=== PATIENT | female | born 1995 | race Caucasian/White ===

== ENCOUNTER 2020-02-02 20:02 | Emergency (ER) | payer OTHER ==
--- OUTSIDE RECORDS SUMMARY | 2020-02-02 20:12 | XMS ---
:1995 Author Organization [facility] Care Team Providers Name Role Phone STAFF, NOT ON Unavailable Unavailable Re-disclosure Warning The records that you are about to access may contain information from federally- assisted alcohol or drug abuse programs. If such information is present, then the following federally mandated warning applies: This information has been disclosed to you from records protected by federal confidentiality rules (42 CFR part 2). The federal rules prohibit you from making any further disclosure of this information unless further disclosure is expressly permitted by the written consent of the person to whom it pertains or as otherwise permitted by 42 CFR part 2. A general authorization for the release of medical or other information is NOT sufficient for this purpose. The Federal rules restrict any use of the information to criminally investigate or prosecute any alcohol or drug abuse patient.The records that you are about to access may contain highly sensitive health information, the redisclosure of which is protected by Article 27-F of the [place] [employer] law. If you continue you may haveaccess to information: Regarding HIV / AIDS; Provided by facilities licensed or operated by the [place] Office of Mental Health; or Provided by the [place] Office for People With Developmental Disabilities. If such information is present, then the following [place] mandated warning applies: This information has been disclosed to you from confidential records which are protected by state law. State law prohibits you from making any further disclosure of this information without the specific written consent of the person to whom it pertains, or as otherwise permitted by law. Any unauthorized further disclosure in violation of state law may result in a fine or prison sentence or both. A general authorization for the release of medical or other information is NOT sufficient authorization for further disclosure. Encounters Encounter Providers Location Date Indications Data Source(s ) Outpatient Attender: DOCTOR 01/14/[address] [facility] STAFF 09:38:00 AM Hospital EDT F50.02 Outpatient Attender: DOCTOR STAFF 09/24/2019 09:16:[address] [facility] F50.02 Outpatient Attender: DOCTOR STAFF 09/04/2019 08:43:00 AM F 50.2 [facility] EDT F50.2 Insurance Providers Payer name Policy type / Policy ID Covered Covered republican's Policy Plan Coverage type republican ID relationship to [employer] Information [employer] HMO [id number] SP [id number] AETNA POS [id number] [place] [id number] AETNA POS [id number] [place] [id number] 3 [employer]ETNA HMO [id number] [place] [id number] 3 [employer] HMO [id number] SP [id number] 3 Problems, Conditions, and Diagnoses Code Display Name Description Problem Type Effective Dates Data Source(s) F50.02 Anorexia nervosa, F50.02 Diagnosis 01/14/2020 [facility] 09:38:00 AM EDT Hospital eating/purging type F50.2 Bulimia nervosa F50.2 Diagnosis 09/04/2019 [facility] 08:43:00 AM EDT Hospital Results ID Date Data Source [id number] 08/31/2019 12:00:[address] [facility] Name Value Range Interpretation Description Data Sup porting Code Source(s) Document(s ) SARS CoV-2 [facility] Interpretation This lab was ordered by [facility] and reported by [employer]. Procedure
[2020-02-02 20:14] VITALS: BP 105/68; PULSE 68; TEMP 99.4; BMI 25.8
--- NOTE | 2020-02-02 20:33 | PDOC ---
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 Patient was upset and started hitting her head on a tree it was self-inflicted. Patient did not pass out. Patient did not hit her so hard enough to get any contusions or obvious injuries. Patient denies any headache, blurry vision or any neurological complaints. Patient was sent in by the eating disorder clinic for evaluation. Allergies: as per nursing notes Past Medical History as per HPI eating disorder and poor self-control Social history: Lives with family. No smoking. No alcohol. No illicit drugs. Surgical history: None General: No fevers or chills, no weakness, no weight loss HEENT: No change in vision. No sore throat,. No ear pain CardioVascular: no chest discomfort. No shortness of breath Respiratory:No cough, or wheezing. Gastrointestinal: no nausea, vomiting, diarrhea or constipation, No rectal bleeding Genitourinary: No dysuria, hematuria, or frequency Musculoskeletal: No joint or muscle pain or swelling Neurologic: No headache, vertigo, dizziness or loss of consciousness Psychiatric: nor depression Skin: No rashes or easy bruising Endocrine: no increased thirst or abnormal weight change Allergic: no skin or latex allergy All other systems reviewed and normal GENERAL: The patient is awake, alert, and fully oriented, in no acute distress. HEENT:Head is normal with no signs of trauma. Eyes: Pupils equal, round and reactive to light, Ears, and Throat are normal. Neck is supple. No Lympha denopathy. EXTREMITIES:atraumatic, Normal range of motion, no edema. NEUROLOGICAL: Normal speech, normal gait. PSYCH: Normal mood, normal affect. SKIN: Warm, Dry, normal turgor, no rashes or lesions noted. Assessment and plan: This is a 24-year-old female with a eating disorder who hit her head on a tree that was self-inflicted. Patient sent in for evaluation. Patient has a normal exam and no complaints. Patient discharged back to her clinic Past History - Medical History Allergies/Adverse Reactions: Allergies Allergy/AdvReac Type Severity Reaction Status Date / Time No Known Allergies Allergy Unverified 02/02/20 20:17 Home Medications: Ambulatory Orders Aripiprazole [Abilify -] 2 mg PO DAILY 02/02/20 Escitalopram Oxalate [Lexapro -] 20 mg PO DAILY 02/02/20 Lamotrigine [Lamictal] 200 mg PO 02/02/20 Pinon Carbonate [Eskalith -] 450 mg PO DAILY 02/02/20 Naltrexone HCl 1 tab PO HS 02/02/20 COPD: No Psychiatric Problems: Yes (ANXIETY DEPRESSION) Other medical history: BULIMIA - Reproductive History Is Patient Now?: No - Psycho-Social/Smoking History Smoking History: Current every day smoker Number of Cigarettes Smoked Daily: 3 Information on smoking cessation initiated: Yes - Substance Abuse Hx (Audit-C & DAST Scrn) How often the patient has a drink containing alcohol: 2-4 times / month Number of drinks the patient has on a typical day: 5 or 6 Score: In Men: 4 or > Positive; In Women: 3 or > Positive: 4 Screen Result (Pos requires Nsg. Audit-10AR): Positive In the last yr the pt used illegal drug/Rx for NonMed reason: Yes Score: Yes response is considered Positive: 1 Screen Result (Positive result requires Nsg. DAST-10): Positive *Physical Exam - Vital Signs Last Vital Signs Temp Pulse Resp BP Pulse Ox 99.4 F 68 16 105/68 98 02/02/20 20:06 02/02/20 20:06 02/02/20 20:06 02/02/20 20:06 02/02/20 20:06 Discharge - Discharge Information Problems reviewed: Yes Clinical Impression/Diagnosis: Concern of healthcare provider about possible non-accidental traumatic injury Condition: Stable Disposition: HOME - Admission No - Follow up/Referral - Patient Discharge Instructions Additional Instructions: Return to the emergency department immediately with ANY new, persistent or worsening symptoms. Continue any medications as previously prescribed by your physician. You should follow up with your primary doctor as soon as possible regarding today's emergency department visit. . Please make sure your doctor reviews the results of your emergency evaluation. Thank you for coming to the Emergency Department today for your care. It was a pleasure to see you today. Please note that your evaluation is INCOMPLETE until you follow-up with your doctor. - Post Discharge Activity
== END 2020-02-02 20:44 | disposition home or self-care (01) ==
LOC: FER 20:02
DX: S09.90XA Unspecified injury of head, initial encounter (principal)
CPT/HCPCS: 99283-25